=== PATIENT | female | born 1985 | race Caucasian/White ===

== ENCOUNTER 2018-10-19 12:33 | Emergency (ER) | payer OTHER ==
[2018-10-19] MEDS ORDERED: IBUPROFEN 400 MG TABLET (FP) PO ONE ×2 (13:20→13:44)
--- NOTE | 2018-10-19 13:20 | PDOC ---
Rapid Medical Evaluation Chief Complaint: Sore Throat Medical Evaluation: Allergies Allergy/AdvReac Type Severity Reaction Status Date / Time aspirin Allergy Verified 06/27/15 13:08 codeine [Codeine] Allergy Verified 06/27/15 13:08 Penicillins Allergy Verified 06/27/15 13:08 I have performed a brief in-person evaluation of this patient. The patient presents with a chief complaint of: Sore throat x 4 days, subjective fever; no cough Pertinent physical exam findings: B/L tonsillar swelling with exudates noted I have ordered the following: Rapid strep, Motrin The patient will proceed to the ED for further evaluation. 10/19/18 13:18
[2018-10-19 13:22] VITALS: BP 114/73; PULSE 108; TEMP 102.4; BMI 24.9
[2018-10-19] MEDS ORDERED: DEXAMETHASONE SOD PHOSPHATE 10 MG/1 ML VIAL ONE (13:44)
[2018-10-19] MEDS ORDERED: DEXAMETHASONE LIQUID 0.5 MG/5 ML 240 ML BULK BOTTLE PO ONE (13:44)
[2018-10-19] MEDS ORDERED: AZITHROMYCIN 500 MG TABLET ONE (13:46)
[2018-10-19] MEDS ORDERED: AZITHROMYCIN 250 MG TABLET ONE (13:47)
--- NOTE | 2018-10-19 13:54 | PDOC ---
History of Present Illness - General Chief Complaint: Sore Throat Stated Complaint: SORE THROAT Time Seen by Provider: 10/19/18 13:39 History Source: Patient Exam Limitations: No Limitations - History of Present Illness Initial Comments: Patient is a 33-year-old female states over the past 2 days she has had a sore throat, fever, and anterior cervical chain lymphadenopathy. She describes the pain as sore and rates it at a 9 out of 10. Tylenol was taken prior to arrival. She denies sick contacts. She denies inability to eat or drink or airway compromise. Patient denies any aggravating or relieving symptoms. 10/19/18 13:49 Past History - Travel Traveled outside of the country in the last 30 days: No Close contact w/someone who was outside of country & ill: No - Past Medical History Allergies/Adverse Reactions: Allergies Allergy/AdvReac Type Severity Reaction Status Date / Time aspirin Allergy Verified 06/27/15 13:08 codeine [Codeine] Allergy Verified 06/27/15 13:08 Penicillins Allergy Verified 06/27/15 13:08 Home Medications: Ambulatory Orders Azithromycin 250 mg PO DAILY #4 tablet 10/19/18 COPD: No Disorders: No - Surgical History Cholecystectomy: Yes (5 yrs ago) - Reproductive History (#): 4 Para: 3 Cervical CA: No Dysfunctional Uterine Bleeding: No Ectopic : No Endometrial CA: No Polycystic Ovaries: No Therapeutic (s) & number: No Tubal Ligation: No Spontaneous : 1 - Immunization History Immunization Up to Date: Yes - Suicide/Smoking/Psychosocial Hx Smoking Status: No Smoking History: Never smoked Number of Cigarettes Smoked Daily: 0 Hx Alcohol Use: No Drug/Substance Use Hx: No Substance Use Type: None Review of Systems - Review of Systems Able to Perform ROS?: Yes Constitutional: Yes: Fever HEENTM: Yes: Throat Pain. No: Throat Swelling, Difficulty Swallowing Respiratory: No: Cough All Other Systems: Reviewed and Negative *Physical Exam - Vital Signs Last Vital Signs Temp Pulse Resp BP Pulse Ox 102.4 F H 108 H 16 114/73 99 10/19/18 13:18 10/19/18 13:18 10/19/18 13:18 10/19/18 13:18 10/19/18 13:18 - Physical Exam Comments: Constitutional: VS stated, pt appears in no apparent distress; sitting in chair. Skin: Warm and dry. Intact, no lesions or excoriations. Head: Normocephalic; atraumatic Eyes: conjunctiva pink without injection or discharge. Ears: No tenderness present. Canals without injection or discharge; TM clear, no retractions or bulging. Nose: Patent, mucosa pink. No drainage. Throat: Oropharynx with pink and moist mucosa. Dentition good. Pt has pharyngeal , no erythema. Pt has exudate. No signs of peritonsillar abscess. Tongue normal , no fasciculations. Airway Patent. Hypoglossal area is soft. Uvula is midline. No trismus. Neck: Supple, non-tender, with full ROM, trachea midline, pt has anterior cervical chain lymphadenopathy, Lungs: Bilateral breath sounds clear upon auscultation. No adventitious breath sounds. Heart: Regular rate and rhythm, S1/S2 auscultated. No murmurs, rubs, or gallops. No visible pulsations, heaves, or lifts on precordium. Abdomen: Soft and non-tender. Musculoskeletal: Moves all extremities without difficulty. Neurologic: Awake, alert. Conversation fluent. Psych: Appropriate affect. 10/19/18 13:50 Moderate Sedation - Procedure Monitoring Vital Signs: Procedure Monitoring Vital Signs Temperature 102.4 F H 10/19/18 13:18 Pulse Rate 108 H 10/19/18 13:18 Respiratory Rate 16 10/19/18 13:18 Blood Pressure 114/73 10/19/18 13:18 O2 Sat by Pulse Oximetry (%) 99 10/19/18 13:18 Medical Decision Making - Medical Decision Making Pt has 4/4 of the classic signs of strep. No rapid beta strep was performed. Patient was given Decadron 10 mg by mouth and the first dose of azithromycin 500 mg by mouth. She had no signs of anaphylaxis or ALLERGIC reaction. The patient has no signs of peritonsillar abscess. She will be discharged on antibiotics with appropriate PCP follow-up. 10/19/18 13:52 *DC/Admit/Observation/Transfer Diagnosis at time of Disposition: Strep throat - Discharge Dispostion Disposition: HOME Condition at time of disposition: Stable Decision to Admit order: No - Prescriptions Prescriptions: Azithromycin 250 mg PO DAILY #4 tablet - Referrals - Patient Instructions Printed Discharge Instructions: DI for Strep Throat Additional Instructions: Antibiotic daily for the next 4 days. After taking the antibiotic for 2 days throw out your toothbrush and replace with new. For your fever alternate Tylenol 650 mg every 4 hours and ibuprofen 600 mg every 6 hours. Follow-up with your primary care physician. - Post Discharge Activity
[2018-10-19] MEDS ORDERED: AZITHROMYCIN 500 MG TABLET PO SCH (14:00)
[2018-10-19] MEDS ORDERED: AZITHROMYCIN 250 MG TABLET PO ONE (14:05)
== END 2018-10-19 14:10 | disposition home or self-care (01) ==
LOC: JERFT 12:33
DX: J02.0 Streptococcal pharyngitis (principal); B95.5 Unspecified streptococcus as the cause of diseases classified elsewhere
CPT/HCPCS: 99281-25

== ENCOUNTER 2019-06-06 14:56 | Emergency (ER) | payer OTHER ==
[2019-06-06 15:02] VITALS: BP 136/84; PULSE 91; TEMP 98.7; BMI 26.2
--- NOTE | 2019-06-06 15:02 | PDOC ---
Rapid Medical Evaluation Time Seen by Provider: 06/06/19 15:00 Medical Evaluation: Allergies Allergy/AdvReac Type Severity Reaction Status Date / Time aspirin Allergy Verified 06/27/15 13:08 codeine [Codeine] Allergy Verified 06/27/15 13:08 Penicillins Allergy Verified 06/27/15 13:08 06/06/19 15:00 I have performed a brief in-person evaluation of this patient. The patient presents with a chief complaint of: left wrist pain s/p FOOSH Pertinent physical exam findings: swelling over left distal radius. FAROM. I have ordered the following: xray, ice The patient will proceed to the ED for further evaluation. Discharge Disposition - Diagnosis Wrist pain, left - Referrals - Patient Instructions - Post Discharge Activity
--- NOTE | 2019-06-06 16:00 | PDOC ---
History of Present Illness - General Chief Complaint: Pain, Acute Stated Complaint: LT. ARM PAIN Time Seen by Provider: 06/06/19 15:00 History Source: Patient - History of Present Illness Initial Comments: 06/06/19 16:09 Chief complaint: Fall Patient is a healthy 34-year-old female who states she fell down several stairs earlier today, no LOC, patient states she tripped, patient is ambulatory and complaining of pain to the left wrist and the left knee. Patient is not sure when her last tetanus was. GENERAL/CONSTITUTIONAL: No fever, weakness. dizziness HEAD, EYES, EARS, NOSE AND THROAT: No change in vision. No ear pain or discharge. No sore throat. CARDIOVASCULAR: No chest pain RESPIRATORY: No shortness of breath or cough GASTROINTESTINAL: No pain, nausea, vomiting, diarrhea or constipation GENITOURINARY: No dysuria MUSCULOSKELETAL: No neck or back pain, + F wrist, left knee SKIN: No rash NEUROLOGIC: No headache, vertigo, loss of consciousness, or loss of sensation. GENERAL: The patient is awake, alert, and fully oriented, in no acute distress. HEAD: Normal with no signs of trauma. EYES: Pupils equal, round and reactive to light, sclera anicteric, conjunctiva clear. ENT: pharynx: no erythema, no exudate, uvula midline NECK: supple CHEST: clear, nontender, rr ABD: soft, nontender BACK: no tenderness or signs of injury EXTREMITIES: Upper extremity with mild swelling at the left wrist, abrasion to the forearm, no pain or tenderness to the elbow or shoulder, hand has no tenderness or signs of injury, neurovascular intact. Left lower extremity with small superficial abrasion to the lateral knee, no swelling, redness, deformity , full range of motion, neurovascular intact. Rest of extremities, normal range of motion, no edema. NEUROLOGICAL: Normal speech, normal gait. SKIN: Warm, Dry Past History - Past Medical History Allergies/Adverse Reactions: Allergies Allergy/AdvReac Type Severity Reaction Status Date / Time aspirin Allergy Verified 06/06/19 15:03 codeine [Codeine] Allergy Verified 06/06/19 15:03 Penicillins Allergy Verified 06/06/19 15:03 Home Medications: Ambulatory Orders NK [No Known Home Medication] 06/06/19 COPD: No Disorders: No - Surgical History Cholecystectomy: Yes (5 yrs ago) - Reproductive History (#): 4 Para: 3 Cervical CA: No Dysfunctional Uterine Bleeding: No Ectopic : No Endometrial CA: No Polycystic Ovaries: No Therapeutic (s) & number: No Tubal Ligation: No Spontaneous : 1 - Immunization History Immunization Up to Date: Yes - Suicide/Smoking/Psychosocial Hx Smoking Status: No Smoking History: Never smoked Number of Cigarettes Smoked Daily: 0 Hx Alcohol Use: No Drug/Substance Use Hx: No Substance Use Type: None *Physical Exam - Vital Signs Last Vital Signs Temp Pulse Resp BP Pulse Ox 98.7 F 91 H 14 136/84 99 06/06/19 15:00 06/06/19 15:00 06/06/19 15:00 06/06/19 15:00 06/06/19 15:00 Procedures - Splinting Splint Location: Left: Wrist Pre-Proc Neuro Vasc Exam: normal Pre-Made Type: velcro Post-Proc Neuro Vasc Exam: normal Medical Decision Making - Medical Decision Making 06/06/19 16:11 Healthy 34-year-old female who fell down several steps, injuring her left wrist and left knee. He should has no head injury, patient is ambulatory, x-ray for left wrist and hand was ordered in triage. Patient does not require imaging of the knee. Review of the x-ray of the left wrist and hand show no acute fracture, issue Will place patient in splint, given wound instructions and if wrist continues to bother her she can follow-up with orthopedist. *DC/Admit/Observation/Transfer Diagnosis at time of Disposition: Wrist pain, left, Abrasion - Discharge Dispostion Disposition: HOME - Referrals Referrals: Will Goins MD [Primary Care Provider] - Davion Day MD [Staff Physician] - - Patient Instructions Printed Discharge Instructions: DI for Abrasion Additional Instructions: Elevate, wear splint You can apply ice for 20 minutes every 2 hours for the next 2 days Motrin 600 mg every 6 hours for pain. Call the orthopedist tomorrow Clean with soap and water 2-3 times daily, apply bacitracin Have her reevaluated if redness, pus, fever or getting worse - Post Discharge Activity
[2019-06-06] MEDS ORDERED: DIPHTH,PERTUSS(ACELL),TET 0.5 ML DISP.SYRIN IM ONE (16:09)
== END 2019-06-06 16:20 | disposition home or self-care (01) ==
LOC: JERFT 14:56
PROC: 3E0234Z Introduction of Serum, Toxoid and Vaccine into Muscle, Percutaneous Approach (ICD-10-PCS; principal; 2019-06-06)
PROC: 2W3DX1Z Immobilization of Left Lower Arm using Splint (ICD-10-PCS; 2019-06-06)
DX: M25.532 Pain in left wrist (principal); S80.212A Abrasion, left knee, initial encounter; S50.812A Abrasion of left forearm, initial encounter; W10.8XXA Fall (on) (from) other stairs and steps, initial encounter; Y93.89 Activity, other specified; Y92.89 Other specified places as the place of occurrence of the external cause; Y99.8 Other external cause status
CPT/HCPCS: 73110-TC-LT-FY; 90715; 99281-25

== ENCOUNTER 2019-11-05 15:25 | Inpatient (IN) | payer OTHER ==
[2019-11-05] MEDS ORDERED: SODIUM CHLORIDE 1,000 ML IV STA (16:56)
[2019-11-05] MEDS ORDERED: ONDANSETRON 4 MG/2 ML VIAL IVPUSH ONE ×2 (16:56→22:27)
[2019-11-05] MEDS ORDERED: ONDANSETRON 4 MG/2 ML VIAL ONE ×2 (17:03→23:00)
[2019-11-05] MEDS ORDERED: KETOROLAC TROMETHAMINE 30 MG/1 ML VIAL ONE (17:09)
[2019-11-05 17:42] LABS: BASO % 0.1 % (0-2.0); EOS % 0.6 % (0-4.5); HEMATOCRIT 38.2 % (32.4-45.2); HEMOGLOBIN 12.5 GM/dL (10.7-15.3); MCH 27.9 pg (25.7-33.7); MCHC 32.6 g/dl (32.0-36.0); MEAN CELL VOLUME 85.4 fl (80-96); MONO % 4.7 % (3.8-10.2); NEUT % 88.6 % (42.8-82.8); PLATELET COUNT 328 K/MM3 (134-434); RBC 4.47 M/mm3 (3.60-5.2); RDW 15.6 % (11.6-15.6); WHITE BLOOD COUNT 8.6 K/mm3 (4.0-10.0)
[2019-11-05 17:46] LABS: EPI CELLS 5.4 /HPF (0-5/HPF); HYALINE CASTS 1 /lpf (0-8); PH,URINE 5.5 (5.0-8.0); URINE APPEARANCE CLOUDY; URINE BACTERIA 1634.9 /hpf (NEGATIVE); URINE BILIRUBIN NEGATIVE (NEGATIVE); URINE COLOR YELLOW; URINE GLUCOSE (UA) NEGATIVE (NEGATIVE); URINE KETONE NEGATIVE (NEGATIVE); URINE LEUK ESTERASE NEGATIVE (NEGATIVE); URINE NITRITE POSITIVE (NEGATIVE); URINE PROTEIN NEGATIVE (NEGATIVE); URINE RBC 29 /hpf (0-4); URINE WBC 2 /hpf (0-5)
[2019-11-05] MEDS ORDERED: morphine CARPU-JECT 2 MG/1 ML DISP.SYRIN IVPUSH ONE (17:56)
--- NOTE | 2019-11-05 17:58 | PDOC ---
History of Present Illness - General Chief Complaint: Pain, Acute Stated Complaint: CHEST PAIN/ABD PAIN Time Seen by Provider: 11/05/19 16:21 History Source: Patient Exam Limitations: No Limitations - History of Present Illness Travel History: No Initial Comments: 11/05/19 17:06 . 34-year-old female presents to ED with complaints of upper abdominal cramping since this morning associated with nausea vomiting and diarrhea since yesterday. Patient denies fever, chills but states feels generally fatigued patient has no urinary complaints recent travel, recent illness and states history of cholecystectomy. Timing/Duration: reports: constant Quality: reports: mild, moderate, cramping Abdominal Pain Onset Location: reports: generalized abdomen Pain Radiation: reports: no radiation Activities at Onset: reports: none Aggravating Factors: improves with: None Alleviating Factors: improves with: None Past History - Travel Traveled outside of the country in the last 30 days: No Close contact w/someone who was outside of country & ill: No - Past Medical History Allergies/Adverse Reactions: Allergies Allergy/AdvReac Type Severity Reaction Status Date / Time aspirin Allergy Verified 11/05/19 16:13 codeine [Codeine] Allergy Verified 11/05/19 16:13 Penicillins Allergy Verified 11/05/19 16:13 Home Medications: Ambulatory Orders Fluoxetine HCl [Prozac -] 20 mg PO DAILY 11/05/19 Nitrofurantoin Monohyd/M-Cryst [Macrobid -] 100 mg PO BID #14 capsule 11/05/19 Ondansetron HCl [Zofran] 4 mg PO TID PRN #12 tablet 11/05/19 Oxycodone HCl/Acetaminophen [Percocet 5-325 mg Tablet] 1 - 2 tab PO Q6H PRN #12 tab MDD 4 11/05/19 COPD: No Disorders: No - Surgical History Cholecystectomy: Yes (5 yrs ago) - Reproductive History (#): 4 Para: 3 Cervical CA: No Dysfunctional Uterine Bleeding: No Ectopic : No Endometrial CA: No Polycystic Ovaries: No Therapeutic (s) & number: No Tubal Ligation: No Spontaneous : 1 - Immunization History Immunization Up to Date: Yes - Psycho Social/Smoking Cessation Hx Smoking Status: No Smoking History: Never smoked Number of Cigarettes Smoked Daily: 0 Information on smoking cessation initiated: No Hx Alcohol Use: No Drug/Substance Use Hx: No Substance Use Type: None Patient Lives Alone: No Review of Systems - Review of Systems Able to Perform ROS?: No Is the patient limited [place] proficient: No Constitutional: Yes: Loss of Appetite, Weakness HEENTM: No: Symptoms Reported Respiratory: No: Symptoms reported Cardiac (ROS): No: Symptoms Reported ABD/GI: Yes: Diarrhea, Nausea, Poor Appetite, Poor Fluid Intake, Vomiting, Abdominal cramping : No: Symptoms Reported Musculoskeletal: No: Symptoms Reported Integumentary: No: Symptoms Reported Neurological: No: Symptoms reported *Physical Exam - Vital Signs Last Vital Signs Temp Pulse Resp BP Pulse Ox 97.8 F 102 H 16 118/69 99 11/05/19 16:11 11/05/19 16:11 11/05/19 16:11 11/05/19 16:11 11/05/19 16:11 - Physical Exam General Appearance: Yes: Nourished, Appropriately Dressed. No: Apparent Distress HEENT: negative: Pale Conjunctivae Neck: positive: Normal Thyroid, Supple Respiratory/Chest: positive: Lungs Clear, Normal Breath Sounds. negative: Respiratory Distress, Accessory Muscle Use Cardiovascular: positive: Regular Rhythm, Tachycardia. negative: Murmur Gastrointestinal/Abdominal: positive: Soft, Tenderness (Generalized greater in the periumbilical and epigastric region) Musculoskeletal: negative: CVA Tenderness Extremity: positive: Normal Inspection Integumentary: positive: Normal Color, Warm, Moist Neurologic: positive: Motor Strength 5/5 (Ambulatory) ED Treatment Course - LABORATORY CBC & Chemistry Diagram: 11/05/19 16:00 11/05/19 16:00 - ADDITIONAL ORDERS Additional order review: Laboratory Results 11/05/19 11/05/19 16:00 16:00 Urine Color Yellow Urine Appearance Cloudy Urine pH 5.5 Ur Specific [place] 1.005 L Urine Protein Negative Urine Glucose (UA) Negative Urine Ketones Negative Urine Blood 2+ H Urine Nitrite Positive H Urine Bilirubin Negative Urine Urobilinogen 1.0 Ur Leukocyte Esterase Negative Urine WBC (Auto) 2 Urine RBC (Auto) 29 Urine Casts (Auto) 1 U Epithel Cells (Auto) 5.4 Urine Bacteria (Auto) 1634.9 Urine HCG, Qual Negative 11/05/19 16:00 RBC 4.47 MCV 85.4 MCHC 32.6 RDW 15.6 D MPV 7.0 L Neutrophils % 88.6 H D Lymphocytes % 6.0 L D Monocytes % 4.7 Eosinophils % 0.6 Basophils % 0.1 - Medications Given in the ED: ED Medications Discontinued Medications Generic Name Dose Route Start Last Admin Trade Name Cindy PRN Reason Stop Dose Admin Ondansetron HCl 4 mg 11/05/19 16:56 11/05/19 17:37 Zofran Injection IVPUSH 11/05/19 16:57 4 mg ONCE ONE Administration Medical Decision Making - Medical Decision Making 11/05/19 17:09 Chief complaint:nausea vomiting diarrhea along with generalized abdominal pain for the past 2 days now with weakness since this afternoon no urinary complaints , denies irregular menses Exam: Appears uncomfortable generalized abdominal tenderness greater in the periumbilical and epigastric region Plan: Labs, urine, antiemetics, IV fluids Toradol 11/05/19 18:10 Laboratory Tests 11/05/19 11/05/19 11/05/19 16:00 16:00 16:00 WBC 8.6 Hgb 12.5 Hct 38.2 MPV 7.0 L Neutrophils % 88.6 H D Lymphocytes % 6.0 L D Urine Blood 2+ H Urine Nitrite Positive H Urine Bilirubin Negative Ur Leukocyte Esterase Negative Urine WBC (Auto) 2 Urine RBC (Auto) 29 Urine Bacteria (Auto) 1634.9 Urine HCG, Qual Negative 11/05/19 18:37 Laboratory Tests 11/05/19 11/05/19 16:00 16:00 WBC 8.6 Hgb 12.5 Hct 38.2 MPV 7.0 L Neutrophils % 88.6 H D Lymphocytes % 6.0 L D Monocytes % 4.7 Eosinophils % 0.6 Basophils % 0.1 Nucleated RBC % 0 Sodium 141 Potassium 3.6 Chloride 107 Carbon Dioxide 26 Anion Gap 7 L BUN 14.0 Creatinine 0.6 Est GFR (CKD-EPI)AfAm 136.87 Est GFR (CKD-EPI)NonAf 118.09 Random Glucose 99 Calcium 8.6 Magnesium 2.1 Total Bilirubin 0.9 AST 165 H ALT 91 H Alkaline Phosphatase 141 H Creatine Kinase 72 Troponin I < 0.02 Lipase 66 L . Patient added for hepatitis panel . patient will be discharged home with antibiotics /antiemetics. No previous urine culture on file. Urine culture sent today. 11/05/19 18:45 . Patient upon discharge complaining of worsening pain now greater in the right lower quadrant. Patient will be ordered for abdominal CT. if negative will treat as discussed above Discharge - Discharge Information Problems reviewed: Yes Clinical Impression/Diagnosis: Nausea vomiting and diarrhea, UTI (urinary tract infection) Condition: Improved Disposition: HOME - Additional Discharge Information Prescriptions: Nitrofurantoin Monohyd/M-Cryst [Macrobid -] 100 mg PO BID #14 capsule Ondansetron HCl [Zofran] 4 mg PO TID PRN #12 tablet PRN Reason: Nausea And/Or Vomiting Oxycodone HCl/Acetaminophen [Percocet 5-325 mg Tablet] 1 - 2 tab PO Q6H PRN #12 tab MDD 4 PRN Reason: Pain - Follow up/Referral Referrals: Fransisco Pedro MD [Primary Care Provider] - - Patient Discharge Instructions Patient Printed Discharge Instructions: DI for Urinary Tract Infection (UTI), DI for Diarrhea and Traveler's Diarrhea -- Adult, Nausea and Vomiting-Adult Additional Instructions: At this time I have sent off a hepatitis panel to rule out hepatitis A. You Will be treated for urinary tract infection and to take Zofran as needed for nausea. Eat bland foods including rice and other starchy foods to bind stool. If symptoms worsen despite above - Post Discharge Activity
[2019-11-05] MEDS ORDERED: KETOROLAC TROMETHAMINE 30 MG/1 ML VIAL IVPUSH ONE (18:00)
[2019-11-05] MEDS ORDERED: MORPHINE SULFATE 2 MG/ML VIAL ONE (18:03)
[2019-11-05 18:14] LABS: ALBUMIN 3.9 g/dl (3.4-5.0); ALK PHOS 141 U/L (45-117); ANION GAP 7 MMOL/L (8-16); BILIRUBIN,TOTAL 0.9 mg/dL (0.2-1); CALCIUM 8.6 mg/dL (8.5-10.1); CHLORIDE 107 mmol/L (98-107); CO2 26 mmol/L (21-32); CREATININE 0.6 mg/dL (0.55-1.3); GLUCOSE,RANDOM 99 mg/dL (74-106); LIPASE 66 U/L (73-393); MAGNESIUM 2.1 mg/dL (1.8-2.4); POTASSIUM 3.6 mmol/L (3.5-5.1); SGOT/AST 165 U/L (15-37); SGPT/ALT 91 U/L (13-61); SODIUM 141 mmol/L (136-145); TOT PROT 7.6 g/dl (6.4-8.2)
[2019-11-05] MEDS ORDERED: morphine CARPU-JECT 4 MG/1 ML DISP.SYRIN IVPUSH ONE ×2 (19:29→22:27)
[2019-11-05] MEDS ORDERED: morphine SULFATE 4 MG/ML VIAL ONE (19:46)
--- NOTE | 2019-11-05 22:10 | PDOC ---
*Physical Exam - Vital Signs Last Vital Signs Temp Pulse Resp BP Pulse Ox 97.8 F 102 H 16 118/69 99 11/05/19 16:11 11/05/19 16:11 11/05/19 16:11 11/05/19 16:11 11/05/19 16:11 - Physical Exam General Appearance: Yes: Appropriately Dressed. No: Apparent Distress HEENT: positive: Normal ENT Inspection Neck: positive: Trachea midline Respiratory/Chest: positive: Lungs Clear. negative: Respiratory Distress Cardiovascular: positive: Regular Rhythm, Regular Rate Gastrointestinal/Abdominal: positive: Tender (Right upper and right lower quadrant tenderness. Worse pain in the right upper quadrant.) Musculoskeletal: positive: Normal Inspection Integumentary: positive: Normal Color, Dry, Warm Neurologic: positive: Fully Oriented, Alert ED Treatment Course - LABORATORY CBC & Chemistry Diagram: 11/06/19 09:55 11/06/19 09:55 - ADDITIONAL ORDERS Additional order review: Laboratory Results 11/05/19 11/05/19 11/05/19 16:00 16:00 16:00 Sodium 141 Potassium 3.6 Chloride 107 Carbon Dioxide 26 Anion Gap 7 L BUN 14.0 Creatinine 0.6 Est GFR (CKD-EPI)AfAm 136.87 Est GFR (CKD-EPI)NonAf 118.09 Random Glucose 99 Calcium 8.6 Magnesium 2.1 Total Bilirubin 0.9 AST 165 H ALT 91 H Alkaline Phosphatase 141 H Creatine Kinase 72 Troponin I < 0.02 Total Protein 7.6 Albumin 3.9 Lipase 66 L Urine Color Yellow Urine Appearance Cloudy Urine pH 5.5 Ur Specific [place] 1.005 L Urine Protein Negative Urine Glucose (UA) Negative Urine Ketones Negative Urine Blood 2+ H Urine Nitrite Positive H Urine Bilirubin Negative Urine Urobilinogen 1.0 Ur Leukocyte Esterase Negative Urine WBC (Auto) 2 Urine RBC (Auto) 29 Urine Casts (Auto) 1 U Epithel Cells (Auto) 5.4 Urine Bacteria (Auto) 1634.9 Urine HCG, Qual Negative 11/05/19 16:00 RBC 4.47 MCV 85.4 MCHC 32.6 RDW 15.6 D MPV 7.0 L Neutrophils % 88.6 H D Lymphocytes % 6.0 L D Monocytes % 4.7 Eosinophils % 0.6 Basophils % 0.1 - Medications Given in the ED: ED Medications Discontinued Medications Generic Name Dose Route Start Last Admin Trade Name Freq PRN Reason Stop Dose Admin Sodium Chloride 1,000 mls @ 1,000 mls/hr 11/05/19 16:56 11/05/19 17:36 Normal Saline - IV 11/05/19 17:55 1,000 mls/hr ASDIR STA Administration Ketorolac Tromethamine 30 mg 11/05/19 18:00 11/05/19 18:09 Toradol Injection - IVPUSH 11/05/19 18:01 30 mg ONCE ONE Administration Morphine Sulfate 2 mg 11/05/19 17:56 11/05/19 18:08 Morphine Injection - IVPUSH 11/05/19 17:57 2 mg ONCE ONE Administration Morphine Sulfate 4 mg 11/05/19 19:29 11/05/19 19:55 Morphine Injection - IVPUSH 11/05/19 19:30 4 mg ONCE ONE Administration Ondansetron HCl 4 mg 11/05/19 16:56 11/05/19 17:37 Zofran Injection IVPUSH 11/05/19 16:57 4 mg ONCE ONE Administration ED Progress Note - Progress Note Progress Note: 11/05/19 22:03 Received patient from nurse practitioner Vladislav. Briefly this is a 34-year-old woman presents to the emergency department for abdominal pain. Patient noted to have urinalysis positive for nitrates with an elevated bacteria count. Patient was planned for discharge when she developed worsening abdominal pain. Labs notable for elevated AST, ALT and alk phos. WBC is within normal limits with shift noted. Patient has received morphine for pain. CT of the abdomen and pelvis is pending at this time. Medical Decision Making - Medical Decision Making 11/05/19 22:25 CT scan is read by Dr. Baltazar: The appendiceal tip appears mildly dilated with apparent slight concentric wall thickening in the same region? Possible tip appendicitis. There is no definite associated periappendiceal fluid/edema. Terminal ileum demonstrates mild concentric wall thickening which may be on the basis of acute or chronic ileitis. No perienteric edema/fluid is noted. There is also mild concentric wall thickening involving several mid abdominal small bowel loops. Status post cholecystectomy. The common bile duct is mildly dilated with the 0.9 cm diameter. No gross intraductal calculus is identified within the limits of CT. Surgical consultation Likely admission Morphine 4 mg IV push now Zofran 4 mg IV push LR 125 ml/hr 11/05/19 22:31 Case has been discussed with Dr. Solomon of general surgery who recommends admission for appendicitis for probable appendectomy in the morning. He recommends Zosyn for antibiotics overnight. As patient is allergic to penicillin I will treat with Levaquin and Flagyl. I will contact the hospitalist for admission. 11/05/19 22:35 11/05/19 23:24 Case has been discussed with the hospitalist service who accepts for inpatient admission under Dr. Woody. Discharge - Discharge Information Problems reviewed: Yes Clinical Impression/Diagnosis: UTI (urinary tract infection), Appendicitis, acute, Abnormal liver function tests Condition: Fair - Admission Yes - Additional Discharge Information - Follow up/Referral - Patient Discharge Instructions - Post Discharge Activity
[2019-11-05] MEDS ORDERED: HYDROmorphone HCL CARPU-JECT 2 MG/1 ML DISP.SYRIN IVPB ONE (22:55)
[2019-11-05] MEDS ORDERED: HYDROmorphone HCl 2 MG/ML VIAL ONE (22:59)
--- NOTE | 2019-11-05 23:03 | PN ---
Teaching Attending Note Name of Resident: Susu Pate ATTENDING PHYSICIAN STATEMENT I saw and evaluated the patient. I reviewed the resident's note and discussed the case with the resident. I agree with the resident's findings and plan as documented. SUBJECTIVE: Patient is a 34 year old woman with a PMH of Cholecystectomy, Anxiety and Penicillin allergy who presents to the ER with complaints of upper abdominal cramping since this morning associated with nausea, vomiting and diarrhea since yesterday. Patient denies fever, chills but states she feels generally fatigued. Denies headache, dizziness, photophobia, dysuria, frequency, urgency, chest pain, SOB or diaphoresis. No recent travel, recent illness or sick contacts. Denies alcohol, tobacco or illicit drug use. Her period stopped on 11/03. OBJECTIVE: Alert Vital Signs Period Temp Pulse Resp BP Sys/Isabel Pulse Ox Last 24 Hr 97.8 F 102 16 118/69 99 HEENT: No Jaundice, eye redness or discharge, PERRLA, EOMI. Normocephalic, atraumatic. External ears are normal and hearing is grossly intact. No nasal discharge. Neck: Supple, nontender. No palpable adenopathy or thyromegaly. No JVD Chest: Good effort. Clear to auscultation and percussion. Heart: Regular. No S3, rub or murmur Abdomen: Not distended, soft, upper abdominal and RLQ tenderness; no HSM. No rebound or guarding. Normal bowel sounds. Ext: Peripheral pulses intact. No leg edema. Skin: Warm and dry. No petechiae, rash or ecchymosis. Neuro: Alert. Oriented x3. CN 2-12 grossly intact. Sensation grossly intact in all four extremities and DTR are symmetric. Psych: Appropriate mood and affect. Good insight. Current Medications Generic Name Dose Route Start Last Admin Trade Name Freq PRN Reason Stop Dose Admin Lactated Ringer's 1,000 ml in 1,000 mls @ 125 mls/hr 11/05/19 22:30 Lactated Ringers Solution IV ASDIR ANA LUISA Metronidazole 500 mg in 100 mls @ 100 mls/hr 11/05/19 22:34 Flagyl 500mg Premixed Ivpb - IVPB 11/05/19 23:33 ONCE ONE Levofloxacin 750 mg in 150 mls @ 100 mls/hr 11/05/19 22:34 Levaquin 750 Mg Premixed Ivpb - IVPB 11/06/19 00:03 ONCE ONE Protocol Abnormal Lab Results 11/05/19 11/05/19 11/05/19 16:00 16:00 16:00 MPV 7.0 L Neutrophils % 88.6 H D Lymphocytes % 6.0 L D Anion Gap 7 L AST 165 H ALT 91 H Alkaline Phosphatase 141 H Lipase 66 L Ur Specific [place] 1.005 L Urine Blood 2+ H Urine Nitrite Positive H ASSESSMENT AND PLAN: 1. Appendicitis/Ileitis - CT abdomen/Pelvis with IV contrast showed findings suggestive of tip appendicitis and ileitis. Patient started on IV flagyl, IV NS , IV levofloxacin, IV zofran and IV morphine. Will keep her NPO, send any diarrheal stool for stool studies, ova/parasites and C.diff. Hepatitis serology pending. Will get upper abdominal sonogram, trend LFTs and consult GI and Surgery. EKG shows sinus bradycardia, LAFB, and anterior infarct of undetermined age. Initial troponin is negative. Will repeat EKG and troponin. Hematuria likely due to recently finished menstrual period - will repeat UA in 24-48 hours. Will continue comprehensive care for all of patients comorbid conditions. 2. DVT prophylaxis - SCD, Early ambulation 3. Advance directives - Full code
[2019-11-05] MEDS: LACTATED RINGERS SOLUTION 1,000 ML/1,000 ML INFUS.BAG IV SCH (23:20)
[2019-11-06] MEDS ORDERED: ONDANSETRON 4 MG/2 ML VIAL IVPUSH PRN ×2 (00:02→12:18)
--- NOTE | 2019-11-06 01:05 | HP ---
CHIEF COMPLAINT: Abdominal pain PCP: Dr. Fransisco Pedro HISTORY OF PRESENT ILLNESS: Ms. Bucio is a 34 year old female with PMH of cholecystectomy who presents with upper abdominal pain for 3 days. Pain began in the upper/periumbilical region and has localized to the RLQ. She complains of associated nausea, 6 episodes of NBNB emesis, 2 episodes of non-bloody diarrhea and fatigue. Pt has had a decreased appetite, has not been able to eat since yesterday. She denies fevers, chills, urinary symptoms. LMP: 2 days ago Recent Travel: denies PAST MEDICAL HISTORY: None PAST SURGICAL HISTORY: Cholecystectomy Social History: Smoking: denies Alcohol: denies Drugs: denies Allergies aspirin Allergy (Verified 11/05/19 16:13) codeine [Codeine] Allergy (Verified 11/05/19 16:13) Penicillins Allergy (Verified 11/05/19 16:13) HOME MEDICATIONS: Home Medications Medication Instructions Recorded Fluoxetine HCl [Prozac -] 20 mg PO DAILY 11/05/19 Nitrofurantoin Monohyd/M-Cryst 100 mg PO BID #14 capsule 11/05/19 [Macrobid -] Ondansetron HCl [Zofran] 4 mg PO TID PRN #12 tablet 11/05/19 Oxycodone HCl/Acetaminophen 1 - 2 tab PO Q6H PRN #12 tab MDD 4 11/05/19 [Percocet 5-325 mg Tablet] REVIEW OF SYSTEMS CONSTITUTIONAL: Absent: fever, chills, diaphoresis, generalized weakness, malaise, loss of appetite, weight change HEENT: Absent: rhinorrhea, nasal congestion, throat pain, throat swelling, difficulty swallowing, mouth swelling, ear pain, eye pain, visual changes CARDIOVASCULAR: Absent: chest pain, syncope, palpitations, irregular heart rate, lightheadedness , peripheral edema RESPIRATORY: Absent: cough, shortness of breath, dyspnea with exertion, orthopnea, wheezing, stridor, hemoptysis GASTROINTESTINAL: abdominal pain, nausea, vomiting, diarrhea Absent: abdominal distension, constipation, melena, hematochezia GENITOURINARY: Absent: dysuria, frequency, urgency, hesitancy, hematuria, flank pain, genital pain MUSCULOSKELETAL: Absent: myalgia, arthralgia, joint swelling, back pain, neck pain SKIN: Absent: rash, itching, pallor HEMATOLOGIC/IMMUNOLOGIC: Absent: easy bleeding, easy bruising, lymphadenopathy, frequent infections ENDOCRINE: Absent: unexplained weight gain, unexplained weight loss, heat intolerance, cold intolerance NEUROLOGIC: Absent: headache, focal weakness or paresthesias, dizziness, unsteady gait, seizure, mental status changes, bladder or bowel incontinence PSYCHIATRIC: Absent: anxiety, depression, suicidal or homicidal ideation, hallucinations. PHYSICAL EXAMINATION Vital Signs - 24 hr 11/05/19 16:11 Temperature 97.8 F Pulse Rate 102 H Respiratory 16 Rate Blood Pressure 118/69 O2 Sat by Pulse 99 Oximetry (%) GENERAL: Awake, alert, and fully oriented, in no acute distress. HEAD: Normal with no signs of trauma. EYES: Pupils equal, round and reactive to light, extraocular movements intact, sclera anicteric, conjunctiva clear. No lid lag. EARS, NOSE, THROAT: Ears normal, nares patent, oropharynx clear without exudates. Moist mucous membranes. NECK: Normal range of motion, supple without lymphadenopathy, JVD, or masses. LUNGS: Breath sounds equal, clear to auscultation bilaterally. No wheezes, and no crackles. No accessory muscle use. HEART: Regular rate and rhythm, normal S1 and S2 without murmur, rub or gallop. ABDOMEN: Periumbilical and RLQ tenderness, soft, not distended, normoactive bowel sounds, no guarding, no rebound, no masses. No hepatomegaly or splenomegaly. MUSCULOSKELETAL: Normal range of motion at all joints. No bony deformities or tenderness. No CVA tenderness. UPPER EXTREMITIES: 2+ pulses, warm, well-perfused. No cyanosis. No clubbing. No peripheral edema. LOWER EXTREMITIES: 2+ pulses, warm, well-perfused. No calf tenderness. No peripheral edema. NEUROLOGICAL: Cranial nerves II-XII intact. Normal speech. Normal gait. PSYCHIATRIC: Cooperative. Good eye contact. Appropriate mood and affect. SKIN: Warm, dry, normal turgor, no rashes or lesions noted, normal capillary refill. Laboratory Results - last 24 hr CBC, BMP 11/05/19 16:00 11/05/19 16:00 Urine Test Results Urine Color Yellow Urine Appearance Cloudy Urine pH 5.5 (5.0-8.0) Ur Specific [place] 1.005 (1.010-1.035) L Urine Protein Negative (NEGATIVE) Urine Glucose (UA) Negative (NEGATIVE) Urine Ketones Negative (NEGATIVE) Urine Blood 2+ (NEGATIVE) H Urine Nitrite Positive (NEGATIVE) H Urine Bilirubin Negative (NEGATIVE) Ur Leukocyte Esterase Negative (NEGATIVE) ASSESSMENT/PLAN: Ms. Bucio is a 34 year old female with PMH of cholecystectomy who presents with upper abdominal pain for 3 days. #Acute appendicitis CTAP: The appendiceal tip appears mildly dilated with apparent slight concentric wall thickening in the same region? Possible tip appendicitis. There is no definite associated periappendiceal fluid/edema. Terminal ileum demonstrates mild concentric wall thickening which may be on the basis of acute or chronic ileitis. No perienteric edema/fluid is noted. There is also mild concentric wall thickening involving several mid abdominal small bowel loops. Status post cholecystectomy. The common bile duct is mildly dilated with the 0.9 cm diameter. No gross intraductal calculus is identified within the limits of CT. Surgery consulted (Dr. Arteaga) will operate in am Cont IV abx flagyl and levaquin IV LR @ 125ml/hr NPO after midnight IV morphine for pain, IV zofran for nausea #Transaminitis AST: 165 ALT: 91, trend LFTs F/u hepatitis panel Abdominal US Send stool cx, O&P, c. diff #Anxiety Cont home fluoxetine post-operatively #FEN IV LR @ 125ml/hr NPO #DVT ppx SCDs #Dispo Monitor on med-surg Visit type - Emergency Visit Emergency Visit: Yes ED Registration Date: 11/05/19 Care time: The patient presented to the Emergency Department on the above date and was hospitalized for further evaluation of their emergent condition. - New Patient This patient is new to me today: Yes Date on this admission: 11/06/19 - Critical Care Critical Care patient: No ATTENDING PHYSICIAN STATEMENT I saw and evaluated the patient. I reviewed the resident's note and discussed the case with the resident. I agree with the resident's findings and plan as documented. SUBJECTIVE: OBJECTIVE: ASSESSMENT AND PLAN:
[2019-11-06] MEDS ORDERED: MORPHINE SULFATE 2 MG/ML VIAL IVPUSH PRN (01:20)
[2019-11-06] MEDS ORDERED: MORPHINE SULFATE 2 MG/ML VIAL ONE (04:50)
[2019-11-06] MEDS ORDERED: METOCLOPRAMIDE HCL INJECTION 10 MG/2 ML VIAL IVPUSH ONE ×2 (04:58→05:26)
[2019-11-06] MEDS ORDERED: METOCLOPRAMIDE HCL INJECTION 10 MG/2 ML VIAL ONE (04:58)
[2019-11-06] MEDS: LACTATED RINGERS SOLUTION 1,000 ML/1,000 ML INFUS.BAG IV SCH (05:21)
[2019-11-06 06:31] VITALS: BMI 27.3
--- NOTE | 2019-11-06 09:28 | EKG ---
Test Reason : Blood Pressure : / mmHG Vent. Rate : 057 BPM Atrial Rate : 057 BPM P-R Int : 114 ms QRS Dur : 092 ms QT Int : 444 ms P-R-T Axes : 006 134 148 degrees QTc Int : 432 ms SINUS BRADYCARDIA LEFT POSTERIOR FASCICULAR BLOCK CANNOT RULE OUT ANTERIOR INFARCT , AGE UNDETERMINED ABNORMAL ECG Confirmed by Trevon Ivey MD ([id number]) on 11/06/2019 9:28:34 AM Referred By: Confirmed By:Trevon Ivey MD
[2019-11-06] MEDS ORDERED: FLU VACCINE QUAD 60 MCG/0.5 ML (MDV 19-20) IM ONE (10:00)
[2019-11-06 10:21] LABS: BASO % 0.2 % (0-2.0); EOS % 0.4 % (0-4.5); HEMATOCRIT 32.5 % (32.4-45.2); HEMOGLOBIN 10.5 GM/dL (10.7-15.3); MCH 27.6 pg (25.7-33.7); MCHC 32.3 g/dl (32.0-36.0); MEAN CELL VOLUME 85.4 fl (80-96); NEUT % 78.4 % (42.8-82.8); PLATELET COUNT 267 K/MM3 (134-434); RDW 15.5 % (11.6-15.6); WHITE BLOOD COUNT 4.6 K/mm3 (4.0-10.0)
[2019-11-06 10:42] LABS: ALBUMIN 3.2 g/dl (3.4-5.0); BLOOD UREA NITROGEN 11.7 mg/dL (7-18); CALCIUM 8.1 mg/dL (8.5-10.1); CREATININE 0.6 mg/dL (0.55-1.3); POTASSIUM 3.5 mmol/L (3.5-5.1); TOT PROT 6.3 g/dl (6.4-8.2)
--- NOTE | 2019-11-06 11:00 | PN ---
Physical Exam: SUBJECTIVE: Patient seen and examined, denies any chest pain, denies shortness of breath. OBJECTIVE: for surgical intervention of appendicitis Patient is a 34 year old female with PMH of cholecystectomy who presents with upper abdominal pain for 3 days. Pain began in the upper/periumbilical region and has localized to the RLQ. She complains of associated nausea, 6 episodes of NBNB emesis, 2 episodes of non-bloody diarrhea and fatigue. Pt has had a decreased appetite. She denies fevers, chills, urinary symptoms. hypotensive this a.m. but asymptomatic. imaging: ct abd/pelvis: appendiceal tip mildly dilated with apparent slight concenteric wall thickening in the same region, possible appendicitis. no associated periappendiceal fluid/edema. the terminal ileum demonstrates mild concentric wall thickening which may be in the basis of acute or chronic ileitis. no perienteric edema/fluid is noted. there is also mild concenteric wall thickening involving several mild abdominal small bowel loops. ruq ultrasound: mild diffuse fatty infiltration of the liver with prominent cbd. Vital Signs Period Temp Pulse Resp BP Sys/Isabel Pulse Ox Last 24 Hr 97.8 F-98.4 F 55-102 16-18 80-118/40-69 98-100 GENERAL: The patient is awake, alert, and fully oriented, in no acute distress. HEAD: Normal with no signs of trauma. EYES: PERRL, extraocular movements intact, sclera anicteric, conjunctiva clear. No ptosis. ENT: Ears normal, nares patent, oropharynx clear without exudates, moist mucous membranes. NECK: Trachea midline, full range of motion, supple. LUNGS: Breath sounds equal, clear to auscultation bilaterally, no wheezes, no crackles, no accessory muscle use. HEART: Regular rate and rhythm, S1, S2 without murmur, rub or gallop. ABDOMEN: Soft, nontender, nondistended, normoactive bowel sounds EXTREMITIES: 2+ pulses, warm, well-perfused, no edema. NEUROLOGICAL: Normal speech, gait not observed. PSYCH: Normal mood, normal affect. SKIN: Warm, dry, normal turgor, no rashes or lesions noted Laboratory Results - last 24 hr 11/05/19 11/05/19 11/05/19 16:00 16:00 16:00 WBC 8.6 RBC 4.47 Hgb 12.5 Hct 38.2 MCV 85.4 MCH 27.9 MCHC 32.6 RDW 15.6 D Plt Count 328 D MPV 7.0 L Absolute Neuts (auto) 7.6 Neutrophils % 88.6 H D Lymphocytes % 6.0 L D Monocytes % 4.7 Eosinophils % 0.6 Basophils % 0.1 Nucleated RBC % 0 Sodium 141 Potassium 3.6 Chloride 107 Carbon Dioxide 26 Anion Gap 7 L BUN 14.0 Creatinine 0.6 Est GFR (CKD-EPI)AfAm 136.87 Est GFR (CKD-EPI)NonAf 118.09 Random Glucose 99 Calcium 8.6 Magnesium 2.1 Total Bilirubin 0.9 AST 165 H ALT 91 H Alkaline Phosphatase 141 H Creatine Kinase 72 Troponin I < 0.02 Total Protein 7.6 Albumin 3.9 Lipase 66 L Urine Color Urine Appearance Urine pH Ur Specific [place] Urine Protein Urine Glucose (UA) Urine Ketones Urine Blood Urine Nitrite Urine Bilirubin Urine Urobilinogen Ur Leukocyte Esterase Urine WBC (Auto) Urine RBC (Auto) Urine Casts (Auto) U Epithel Cells (Auto) Urine Bacteria (Auto) Urine HCG, Qual Negative Blood Type Antibody Screen 11/05/19 11/06/19 11/06/19 16:00 00:31 09:55 WBC 4.6 RBC 3.80 Hgb 10.5 L Hct 32.5 MCV 85.4 MCH 27.6 MCHC 32.3 RDW 15.5 Plt Count 267 MPV 7.0 L Absolute Neuts (auto) 3.6 Neutrophils % 78.4 Lymphocytes % 14.0 D Monocytes % 7.0 Eosinophils % 0.4 Basophils % 0.2 Nucleated RBC % 0 Sodium Potassium Chloride Carbon Dioxide Anion Gap BUN Creatinine Est GFR (CKD-EPI)AfAm Est GFR (CKD-EPI)NonAf Random Glucose Calcium Magnesium Total Bilirubin AST ALT Alkaline Phosphatase Creatine Kinase Troponin I Total Protein Albumin Lipase Urine Color Yellow Urine Appearance Cloudy Urine pH 5.5 Ur Specific [place] 1.005 L Urine Protein Negative Urine Glucose (UA) Negative Urine Ketones Negative Urine Blood 2+ H Urine Nitrite Positive H Urine Bilirubin Negative Urine Urobilinogen 1.0 Ur Leukocyte Esterase Negative Urine WBC (Auto) 2 Urine RBC (Auto) 29 Urine Casts (Auto) 1 U Epithel Cells (Auto) 5.4 Urine Bacteria (Auto) 1634.9 Urine HCG, Qual Blood Type O POSITIVE Antibody Screen Negative 11/06/19 09:55 WBC RBC Hgb Hct MCV MCH MCHC RDW Plt Count MPV Absolute Neuts (auto) Neutrophils % Lymphocytes % Monocytes % Eosinophils % Basophils % Nucleated RBC % Sodium 142 Potassium 3.5 Chloride 108 H Carbon Dioxide 29 Anion Gap 6 L BUN 11.7 Creatinine 0.6 Est GFR (CKD-EPI)AfAm 136.87 Est GFR (CKD-EPI)NonAf 118.09 Random Glucose 100 Calcium 8.1 L Magnesium Total Bilirubin 1.0 AST 783 H ALT 616 H Alkaline Phosphatase 213 H Creatine Kinase Troponin I Total Protein 6.3 L Albumin 3.2 L Lipase Urine Color Urine Appearance Urine pH Ur Specific [place] Urine Protein Urine Glucose (UA) Urine Ketones Urine Blood Urine Nitrite Urine Bilirubin Urine Urobilinogen Ur Leukocyte Esterase Urine WBC (Auto) Urine RBC (Auto) Urine Casts (Auto) U Epithel Cells (Auto) Urine Bacteria (Auto) Urine HCG, Qual Blood Type Antibody Screen Active Medications Generic Name Dose Route Start Last Admin Trade Name Freq PRN Reason Stop Dose Admin Lactated Ringer's 1,000 ml in 1,000 mls @ 125 mls/hr 11/05/19 22:30 11/06/19 05:21 Lactated Ringers Solution IV 125 mls/hr ASDIR ANA LUISA Administration Morphine Sulfate 2 mg 11/06/19 01:20 Morphine Sulfate IVPUSH Q4H PRN PAIN LEVEL 6-10 Ondansetron HCl 4 mg 11/06/19 00:02 11/06/19 04:36 Zofran Injection IVPUSH 4 mg Q4H PRN Administration NAUSEA AND/OR VOMITING ASSESSMENT/PLAN: Problem List - Problems (1) Appendicitis, acute Assessment/Plan: s/p laparoscopic appendectomy, lavage post op care/monitoring repeat labs, advance diet per surgery, bowel regimen, dvt prophylaxis post op antibiotics: levaquin and flagyl surgery following Code(s): K35.80 - UNSPECIFIED ACUTE APPENDICITIS (2) Abnormal liver function tests Assessment/Plan: ast/alt elevated on admission, ast 165>783, alt 91>616 liver ultrasound: mild diffuse fatty infiltration of the liver with prominent cbd hepatitis panel ordered and pending gi consulted MRCP ordered to assess biliary tract Code(s): R94.5 - ABNORMAL RESULTS OF LIVER FUNCTION STUDIES (3) Prophylactic measure Assessment/Plan: fen fluid: LR 125 cc/hr monitor electrolytes labs in am full code npo Code(s): Z29.9 - ENCOUNTER FOR PROPHYLACTIC MEASURES, UNSPECIFIED Visit type - Emergency Visit Emergency Visit: Yes ED Registration Date: 11/05/19 Care time: The patient presented to the Emergency Department on the above date and was hospitalized for further evaluation of their emergent condition. - New Patient This patient is new to me today: Yes Date on this admission: 11/06/19 - Critical Care Critical Care patient: No - Discharge Referral Referred to [facility] Med P.C.: No
[2019-11-06] MEDS ORDERED: MIDAZOLAM HCL 2 MG/2 ML SINGLE DOSE VIAL ONE (12:10)
[2019-11-06] MEDS ORDERED: fentaNYL CITRATE 250 MCG/5 ML VIAL ONE (12:10)
[2019-11-06] MEDS ORDERED: ROCURONIUM BROMIDE 50 MG/5 ML SYRINGE ONE (12:10)
[2019-11-06] MEDS ORDERED: PROPOFOL 20 ML ONE (12:10)
[2019-11-06] MEDS ORDERED: DEXAMETHASONE SOD PHOSPHATE 4 MG/1 ML VIAL ONE (12:11)
[2019-11-06] MEDS ORDERED: LIDOCAINE HCL/PF 2% SDV 5ML VIAL ONE (12:11)
[2019-11-06] MEDS ORDERED: morphine SULFATE 4 MG/ML VIAL IVPB PRN (12:18)
[2019-11-06] MEDS ORDERED: oxyCODONE HCL 5 MG TABLET PO PRN ×2 (12:18→13:14)
--- NOTE | 2019-11-06 12:23 | OP ---
Operative Note - Note: Operative Date: 11/06/19 Pre-Operative Diagnosis: tip appendicitis, abnormal cbd, elevated lfts Operation: laparoscopic appendectomy, lavage Findings: enlarged tip of appendix Post-Operative Diagnosis: Same as Pre-op Surgeon: Hernandez Arteaga Anesthesiologist/CAR RENTAL AGENT: Ephraim Figueroa Anesthesia: General Specimens Removed: appendix Estimated Blood Loss (mls): 10 Operative Report Dictated: Yes
[2019-11-06] MEDS ORDERED: KETOROLAC TROMETHAMINE 30 MG/1 ML VIAL ONE (13:06)
[2019-11-06] MEDS ORDERED: NEOSTIGMINE METHYLSULFATE 0.5 MG/ML - 10 ML MDV ONE (13:06)
--- NOTE | 2019-11-06 13:06 | CONS ---
DATE OF CONSULTATION: 11/06/2019 REASON FOR CONSULTATION: Acute appendicitis. This is an emergency room consultation at the request of the emergency room physician. BRIEF HISTORY: This is a 34-year-old female who presents to [facility] with a 2-day history of abdominal pain that began in her periumbilical area, moved to her right lower quadrant with nausea and vomiting. She was noted on CAT scan to have an enlarged tip of her appendix consistent with a tip appendicitis. She is also status post cholecystectomy many years ago. She was noted as far back as 2011, to have a dilated bile duct at 7 mm seen on ultrasound. The CAT scan showed that she now has a 9-mm bile duct. She also had mildly elevated liver function tests in the emergency room that have risen overnight. Her AST went from 165 to 783. Her ALT went from 91 to 616, and her alkaline phosphatase went from 141 to 213. Request was made for surgical evaluation. Her white blood cell count has a shift but is normal. PAST MEDICAL HISTORY: Significant for anxiety. PAST SURGICAL HISTORY: As stated in HPI. HOME MEDICATIONS: Include fluoxetine. FAMILY HISTORY: Noncontributory. ALLERGIES: ASPIRIN, CODEINE, and PENICILLIN. SOCIAL HISTORY: Negative for alcohol, negative for tobacco. REVIEW OF SYSTEMS: General: Denies fatigue or malaise. Cardiac: Denies chest pain or palpitations. Respiratory: Denies shortness of breath or wheeze. Gastrointestinal: Admits to periumbilical and right lower quadrant pain radiating to her back with nausea. She denies diarrhea. Denies blood in her stool. She says she often has problems with her stomach. Genitourinary: Denies dysuria. Musculoskeletal: Denies joint pain, joint swelling. Psychiatric: Denies anxiety, depression, or hearing voices. PHYSICAL EXAMINATION: General: This is a well-developed, well-nourished 34-year-old female in no distress. Vital Signs: She is afebrile. Her vital signs are stable. HEENT: Her head is normocephalic. Sclerae anicteric. Neck: Supple. Chest: Clear. Abdomen: Soft. It is nondistended. She has mild tenderness in the epigastric region. She has mild tenderness around the umbilicus. She has moderate tenderness in the right lower quadrant. She has well-healed laparoscopic surgical scars. She has no rebound, no guarding. Extremities: No edema. IMAGING: As stated in HPI. ASSESSMENT: A 34-year-old female who appears to have 2 problems. She does have right lower quadrant pain, right lower quadrant tenderness, and an abnormal appendix, but the drywall hanger helper feels that this may be tip appendicitis. This is either tip appendicitis or an abnormal appendicitis possibly from a tumor. She also appears to have an issue with her bowel duct as it is enlarged. It is normal to have an enlarged bowel duct after cholecystectomy; however, this is more generous than would be expected in a 34-year-old female. She also has elevated transaminases as well as alkaline phosphatase with a normal bilirubin. I suspect that she may have a primary duct stone versus some other primary liver problem. The alkaline phosphatase suggests that there is irritation to the bowel duct itself, and the bile duct is noted to be enlarged. PLAN: At this point, she likely needs a GI workup including an MRI and an ERCP, but she also would benefit from an appendectomy in case this is appendicitis and also if this is a tumor of the appendix. I have offered the patient to proceed with appendectomy prior to workup of her abnormal liver function tests and abnormal bile duct or to proceed with that 1st. She prefers to proceed with surgery. Her is present. At this point, we will eliminate appendicitis as a possible source of sepsis. She understands that there is a possibility that the medications from surgery can also cause further irritation to the liver, and if her primary problem is actually a problem with her liver or her bile duct that obviously an appendectomy will not prevent that. But if this is appendicitis then this will remove that as a source of sepsis and will decrease confusion in the clinical picture. Risks and benefits of surgery have been explained to the patient in detail. These are including, but not limited to, the possibility of conversion to open, the possibility of injury to viscera or bladder, the possibility of staple line dehiscence, the possibility of infection, the possibility of future obstruction, the possibility of future hernia, the possibility of worsening of her liver injury from whatever is causing it, the possibility of developing cholangitis, which may be delayed in diagnosis because of postoperative pain clouding the picture. The patient wishes to proceed with surgery. There are also a multitude of medical risks including, but not limited to, cardiac, neurologic, pulmonary, and vascular complications, even . At this point, the patient is receiving Flagyl antibiotic as well as Levaquin, and we will proceed with surgery. She will need a gastroenterology evaluation after the surgery and possibly an MRI and possibly an ERCP. DO KRISTI BARKLEY/[id number]
[2019-11-06] MEDS ORDERED: GLYCOPYRROLATE 0.2 MG/1 ML VIAL ONE ×2 (13:07)
[2019-11-06] MEDS ORDERED: PROMETHAZINE HCL 25 MG/1 ML VIAL IVPUSH PRN (13:14)
--- NOTE | 2019-11-06 14:26 | CON.GI ---
Consult Consult Specialty:: GI Referred by:: Hospitalist service Reason for Consultation:: Abnormal LFTs - History of Present Illness Chief Complaint: Abdominal pain: limited information as patient just recovering from general anesthesia s/p Lap Appendectomy History of Present Illness: 34F admitted through [facility] for evaluation of progressive abdominal pain (patient points to her mid/upper abdomen). Pain progressed in intensity an she began vomiting as well. CT scan performed revealed enlarged tip of appendix. her transaminases as well as ALP were elevated on admission. CT scan also revealed her to be s/p cholecystectomy with prominent CBD of 9mm along with thickened terminal ileum / bowel loops. ABD US revealed fatty liver and an 8mm CBD Liver chemistries linda this morning. GI consult called routinely for elevated AST/ ALT. Dr. Kunz went to see the patient, however, she was already in the OR. Ms. Bucio denies history of excessive etoh use, IVDA/DA, blood transfusions. She states having had hepatitis when she was a child living in [facility]. She denies diarrhea, rectal bleeding. There is no family history of liver disease. Her liver chemistries were normal in 2015. - History Source History Provided By: Patient, Medical Record Limitations to Obtaining History: Other (Patient just received general anesthesia) - Past Medical History Hepatobiliary: Yes: Other (Hepatitis in childhood (? hepatitis A)) ...LMP: 07/03/13 ...: No Psych: Yes: Depression Additional Medical History: Denies - Past Surgical History Additional Surgical History: laparoscopic cholecystectomy 2007 - Alcohol/Substance Use Hx Alcohol Use: Yes (occaional) History of Substance Use: reports: None - Smoking History Smoking history: Never smoked Aproximately how many cigarettes per day: 0 - Social History Usual Living Arrangement: With Spouse Occupation: Digital Hardware Design Engineer Place of : Other ([facility]) History of Recent Travel: No Home Medications - Allergies Allergies/Adverse Reactions: Allergies Allergy/AdvReac Type Severity Reaction Status Date / Time aspirin Allergy Verified 11/05/19 16:13 codeine [Codeine] Allergy Verified 11/05/19 16:13 Penicillins Allergy Verified 11/05/19 16:13 - Home Medications Home Medications: Ambulatory Orders Fluoxetine HCl [Prozac -] 20 mg PO DAILY 11/05/19 Nitrofurantoin Monohyd/M-Cryst [Macrobid -] 100 mg PO BID #14 capsule 11/05/19 Ondansetron HCl [Zofran] 4 mg PO TID PRN #12 tablet 11/05/19 Oxycodone HCl/Acetaminophen [Percocet 5-325 mg Tablet] 1 - 2 tab PO Q6H PRN #12 tab MDD 4 11/05/19 Family Medical History Other Family History: Mother: Alive: healthy. Father: : 30's: [place]. 1 brother, 1 sister: healthy. 3 healthy children. No family history of liver disease, IBD, Colorectal cancer Review of Systems - Review of Systems Constitutional: denies: Chills, Fever Cardiovascular: denies: Chest Pain Gastrointestinal: reports: Abdominal Pain, Nausea, Vomiting. denies: Diarrhea, Rectal Bleeding Neurological: reports: Other (arousable, somnolent (received general anesthesia) ) Physical Exam-GI Vital Signs: Vital Signs Temperature 98.0 F 11/06/19 13:22 Pulse Rate 53 L 11/06/19 14:00 Respiratory Rate 16 11/06/19 14:00 Blood Pressure 106/56 L 11/06/19 14:00 O2 Sat by Pulse Oximetry (%) 100 11/06/19 14:00 Constitutional: Yes: Calm Eyes: No: Sclera Icterus Cardiovascular: Yes: Bradycardia. No: Murmur Respiratory: Yes: CTA Bilaterally Gastrointestinal Inspection: Yes: Scars (trochar scars in lower abdomen.). No: Distention ...Auscultate: Yes: Normoactive Bowel Sounds ...Palpate: Yes: Soft, Tenderness (TTP Mid). No: Hepatomegaly ...Percussion: No: Tympanitic Edema: No (No LE edema) Neurological: Yes: Alert (somnolent) Labs: CBC, BMP 11/06/19 09:55 11/06/19 09:55 Hepatic Panel Total Bilirubin 1.0 mg/dL (0.2-1) 11/06/19 09:55 AST 783 U/L (15-37) H 11/06/19 09:55 ALT 616 U/L (13-61) H 11/06/19 09:55 Alkaline Phosphatase 213 U/L (45-117) H 11/06/19 09:55 Albumin 3.2 g/dl (3.4-5.0) L 11/06/19 09:55 Imaging - Results Ultrasound: Report Reviewed (fatty liver and 8mm CBD) Problem List - Problems (1) Abnormal liver function tests Assessment/Plan: Given complaints of mid / upper abdominal pain accompanying abnormal liver chemistries on admission, hepatobiliary etiology will need to be excluded. I explained this to Ms. Alejo, however she was recovering from appendectomy and still somewhat somnolent. Advise: IV Hydration per primary team Ordered repeat liver chemistries for this evening and morning Ordered MRCP to assess biliary tract. when patient is able to cooperate as she is s/p Lap Claire. she is S/P Lap Claire and seeing a mildly dilated CBD in this setting may reflect phssiologic change. Ordered hepatitis serologies Continue Levaquin and flagyl for now until developing biliary tract obstruction is excluded. Code(s): R94.5 - ABNORMAL RESULTS OF LIVER FUNCTION STUDIES
[2019-11-06] MEDS ORDERED: LACTATED RINGERS SOLUTION 1,000 ML IV ONE (16:00)
--- NOTE | 2019-11-06 16:58 | OP ---
DATE OF OPERATION: 11/06/2019 PREOPERATIVE DIAGNOSIS: Tip appendicitis, abnormal appendix. POSTOPERATIVE DIAGNOSIS: Tip appendicitis, abnormal appendix. PROCEDURE: Laparoscopic appendectomy, lavage. SURGEON: Hernandez Arteaga DO PRESSURE TESTING TECHNICIAN: None. ANESTHESIOLOGIST: Ephraim Figueroa MD SPECIMEN: Appendix. ESTIMATED BLOOD LOSS: Minimal. DRAINS: None. COMPLICATIONS: None. DISPOSITION: To the recovery room in stable condition. BRIEF HISTORY: [id number] male presented to [facility] Emergency Room with abdominal pain. She was found to have right lower quadrant tenderness. She had a CAT scan of her abdomen and pelvis, showing an abnormal appendix with a dilated tip consistent with tip appendicitis. She was also noted to have mildly elevated liver function tests as shot up overnight and a dilated common bile duct after cholecystectomy. At this point she presents for appendectomy and will need a postop workup of her dilated bile duct and abnormal liver function tests. DESCRIPTION OF PROCEDURE: The patient was placed in the supine position. General anesthesia was initiated. The abdomen was prepped and draped in sterile fashion. A Rubin catheter was inserted. A vertical incision was made infraumbilical, with scalpel used to go through skin and subcutaneous tissue. The fascia was then lifted with a Tanya clamp and incised vertically. The peritoneum was entered bluntly. A 0 Vicryl stitch was placed across the fascial defect and used to secure the Rin trocar. Pneumoperitoneum was then created, followed by the insertion of a 5-mm 30-degree laparoscope. Two 5-mm trocars were placed, one suprapubic and one in the left lower quadrant. Attention was turned toward the appendix. It was elongated. The tip was enlarged and mildly inflamed, consistent with either an abnormal tip of the appendix or early tip appendicitis. A window was made at its base. The LigaSure device was used to divide the mesoappendix with multiple welds. The Ethicon Endo LAURENCE Multi-Fire Purple Load 45-mm stapler was used to take the appendix at its base in 1 firing. The staple line was inspected. It was intact. There was no bleeding, no breaks, no sign of ischemia. The appendix was placed in a specimen bag, removed through the infraumbilical trocar site, and sent to Pathology marked as "specimen." A limited lavage was done and all return was clear. The trocars were removed under direct visualization and no bleeding was noted as pneumoperitoneum was released. The fascia of the infraumbilical trocar site was then closed with multiple interrupted 0 Vicryl sutures. Then the 3 skin incisions were closed with Biosyn. Dermabond dressing was placed over all. The patient tolerated the procedure well, with no complications. At this point the operation terminated. PLAN: Patient will be now evaluated by the GI Service for elevated liver function tests and her dilated common bile duct. She is okay to undergo an MRCP, if necessary. I have discussed the case with Dr. Duran Helm. DO KRISTI BARKLEY/[id number] MTDD
[2019-11-06] MEDS: oxyCODONE HCL 5 MG TABLET PO PRN (20:01)
[2019-11-07] MEDS: oxyCODONE HCL 5 MG TABLET PO PRN (00:47)
[2019-11-07] MEDS: LACTATED RINGERS SOLUTION 1,000 ML/1,000 ML INFUS.BAG IV SCH ×2 (00:56→01:43)
[2019-11-07 01:23] LABS: ALBUMIN 3.3 g/dl (3.4-5.0); BILIRUBIN,TOTAL 0.4 mg/dL (0.2-1); BLOOD UREA NITROGEN 9.5 mg/dL (7-18); CALCIUM 8.1 mg/dL (8.5-10.1); CREATININE 0.5 mg/dL (0.55-1.3); POTASSIUM 3.6 mmol/L (3.5-5.1); TOT PROT 6.2 g/dl (6.4-8.2)
[2019-11-07 08:46] LABS: BASO % 0.2 % (0-2.0); EOS % 0.1 % (0-4.5); HEMATOCRIT 29.2 % (32.4-45.2); HEMOGLOBIN 9.5 GM/dL (10.7-15.3); LYMPH % 19.7 % (8-40); MCH 27.5 pg (25.7-33.7); MCHC 32.6 g/dl (32.0-36.0); MEAN CELL VOLUME 84.4 fl (80-96); MEAN PLT VOLUME 7.1 fl (7.5-11.1); MONO % 7.6 % (3.8-10.2); NEUT % 72.4 % (42.8-82.8); PLATELET COUNT 244 K/MM3 (134-434); RBC 3.46 M/mm3 (3.60-5.2); RDW 15.1 % (11.6-15.6); WHITE BLOOD COUNT 8.2 K/mm3 (4.0-10.0)
--- NOTE | 2019-11-07 09:13 | PN ---
Progress Note (short form) - Note Progress Note: SURGERY 34yo F s/p lap appy POD 1, pt seen and examined at bedside. Pt states that she is feeling much better. Pt denies n/v, fever, chills, cp, or SOB. Pt is urinating and ambulating well. Pt states that she is hungry and wants to go home. Pt had MRCP done yesterday but has yet to be read. Last Vital Signs Temp Pulse Resp BP Pulse Ox 98.9 F 73 18 108/49 L 100 11/07/19 06:57 11/07/19 06:57 11/07/19 06:57 11/07/19 06:57 11/06/19 21:00 CBC, BMP 11/07/19 08:16 PE: Gen: A&O X3 Resp: breathing comfortably Abd: soft, nondistended, nontender, incisions clean with no erythema or discharge Ext: no edema Problem List - Problems (1) Appendicitis, acute Assessment/Plan: Plan -pt appears to be doing well from surgery standpoint, pt is cleared by surgery. -f/up with GI for recs on elevated LFTs -pt should follow up with Dr. Arteaga in the office next week for post op check. Pt discussed with Dr. Arteaga who agrees with plan Code(s): K35.80 - UNSPECIFIED ACUTE APPENDICITIS
[2019-11-07 09:34] LABS: ALBUMIN 2.9 g/dl (3.4-5.0); BILIRUBIN,DIRECT 0.2 mg/dL (0.0-0.2); BILIRUBIN,TOTAL 0.3 mg/dL (0.2-1); BLOOD UREA NITROGEN 12.6 mg/dL (7-18); CREATININE 0.5 mg/dL (0.55-1.3); MAGNESIUM 1.9 mg/dL (1.8-2.4); POTASSIUM 3.5 mmol/L (3.5-5.1); TOT PROT 5.4 g/dl (6.4-8.2)
[2019-11-07] MEDS: PANTOPRAZOLE SODIUM 40 MG VIAL IVPUSH SCH (09:58)
[2019-11-07] MEDS: ENOXAPARIN NA (PORCINE) 40 MG/0.4 ML DISP.SYRIN SQ SCH ×2 (09:59→10:12)
--- NOTE | 2019-11-07 11:36 | EKG ---
Test Reason : Blood Pressure : / mmHG Vent. Rate : 073 BPM Atrial Rate : 073 BPM P-R Int : 124 ms QRS Dur : 090 ms QT Int : 400 ms P-R-T Axes : 038 060 045 degrees QTc Int : 440 ms NORMAL SINUS RHYTHM NORMAL ECG WHEN COMPARED WITH ECG OF 15-OCT-2011 21:41, QT HAS LENGTHENED Confirmed by KARLEE MILNER MD ([id number]) on 11/07/2019 11:36:14 AM Referred By: Confirmed By:KARLEE MILNER MD
--- NOTE | 2019-11-07 12:54 | PN ---
Physical Exam: SUBJECTIVE: Patient seen and examined at the bedside. she denies any pain, feels sore, asking about discharge and explained that we are monitoring her liver function. OBJECTIVE: Patient is a 34 year old female with PMH of cholecystectomy who presents with upper abdominal pain for 3 days. Pain began in the upper/periumbilical region and has localized to the RLQ. She complains of associated nausea, 6 episodes of NBNB emesis, 2 episodes of non-bloody diarrhea and fatigue. Pt has had a decreased appetite. She denies fevers, chills, urinary symptoms. She is s/p appendectomy post op Day 1. imaging: ct abd/pelvis: appendiceal tip mildly dilated with apparent slight concenteric wall thickening in the same region, possible appendicitis. no associated periappendiceal fluid/edema. the terminal ileum demonstrates mild concentric wall thickening which may be in the basis of acute or chronic ileitis. no perienteric edema/fluid is noted. there is also mild concenteric wall thickening involving several mild abdominal small bowel loops. ruq ultrasound: mild diffuse fatty infiltration of the liver with prominent cbd. 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 HEAD: Normal with no signs of trauma. EYES: PERRL, extraocular movements intact, sclera anicteric, conjunctiva clear. No ptosis. ENT: Ears normal, nares patent, oropharynx clear without exudates, moist mucous membranes. NECK: Trachea midline, full range of motion, supple. LUNGS: Breath sounds equal, clear to auscultation bilaterally, no wheezes HEART: Regular rate and rhythm, S1, S2 without murmur, rub or gallop. ABDOMEN: surgical incisions c/d/i. abdomen, soft, no pain or tenderness, reports tolerating diet. no bm yet EXTREMITIES: 2+ pulses, warm, well-perfused, no edema. NEUROLOGICAL: Normal speech, gait not observed. PSYCH: Normal mood, normal affect. Laboratory Results - last 24 hr 11/05/19 11/05/19 11/06/19 19:05 19:05 22:32 WBC RBC Hgb Hct MCV MCH MCHC RDW Plt Count MPV Absolute Neuts (auto) Neutrophils % Lymphocytes % Monocytes % Eosinophils % Basophils % Nucleated RBC % Sodium 139 Potassium 3.6 Chloride 107 Carbon Dioxide 23 Anion Gap 9 BUN 9.5 Creatinine 0.5 L Est GFR (CKD-EPI)AfAm 145.33 Est GFR (CKD-EPI)NonAf 125.39 Random Glucose 96 Calcium 8.1 L Magnesium Total Bilirubin 0.4 Direct Bilirubin AST 355 H ALT 517 H Alkaline Phosphatase 211 H Total Protein 6.2 L Albumin 3.3 L Hep A IgM Ab Confirm Negative Negative Hepatitis A Ab Total Positive H Hep Bs Antigen Negative Hep B Core IgM Ab Negative Hepatitis C Ab (EIA) 0.1 11/07/19 11/07/19 08:16 08:16 WBC 8.2 RBC 3.46 L Hgb 9.5 L Hct 29.2 L MCV 84.4 MCH 27.5 MCHC 32.6 RDW 15.1 Plt Count 244 MPV 7.1 L Absolute Neuts (auto) 6.0 Neutrophils % 72.4 Lymphocytes % 19.7 D Monocytes % 7.6 Eosinophils % 0.1 Basophils % 0.2 Nucleated RBC % 0 Sodium 140 Potassium 3.5 Chloride 107 Carbon Dioxide 26 Anion Gap 7 L BUN 12.6 Creatinine 0.5 L Est GFR (CKD-EPI)AfAm 145.33 Est GFR (CKD-EPI)NonAf 125.39 Random Glucose 82 Calcium 8.0 L Magnesium 1.9 Total Bilirubin 0.3 Direct Bilirubin 0.2 AST 197 H ALT 375 H Alkaline Phosphatase 166 H Total Protein 5.4 L Albumin 2.9 L Hep A IgM Ab Confirm Hepatitis A Ab Total Hep Bs Antigen Hep B Core IgM Ab Hepatitis C Ab (EIA) Active Medications Generic Name Dose Route Start Last Admin Trade Name Freq PRN Reason Stop Dose Admin Enoxaparin Sodium 40 mg 11/07/19 10:00 11/07/19 10:12 Lovenox - SQ Not Given DAILY ANA LUISA Metronidazole 500 mg in 100 mls @ 100 mls/hr 11/06/19 18:00 11/07/19 09:58 Flagyl 500mg Premixed Ivpb - IVPB 100 mls/hr Q8H-IV ANA LUISA Administration Lactated Ringer's 1,000 ml in 1,000 mls @ 100 mls/hr 11/06/19 17:00 11/07/19 01:43 Lactated Ringers Solution IV 100 mls/hr ASDIR ANA LUISA Administration Ondansetron HCl 4 mg 11/06/19 12:18 Zofran Injection IVPUSH Q6H PRN NAUSEA Oxycodone HCl 5 mg 11/06/19 13:14 Roxicodone - PO Q4H PRN PAIN LEVEL 1-5 Oxycodone HCl 10 mg 11/06/19 13:14 11/07/19 00:47 Roxicodone - PO 10 mg Q4H PRN Administration PAIN LEVEL 6-10 Pantoprazole Sodium 40 mg 11/07/19 10:00 11/07/19 09:58 Protonix Iv IVPUSH 40 mg DAILY ANA LUISA Administration ASSESSMENT/PLAN: Problem List - Problems (1) Appendicitis, acute Assessment/Plan: s/p laparoscopic appendectomy, lavage pod day 1. cleared for discharge home by surgery follow up outpatient. will discharge once cleared by GI for elevated liver enzymes. 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 - New Patient This patient is new to me today: No - Critical Care Critical Care patient: No - Discharge Referral Referred to [facility] Med P.C.: No
--- NOTE | 2019-11-07 13:04 | PN.GI ---
GI Progress Note Subjective: Pt seen/examined at bedside, s/p lap appendectomy. Mild soreness at surgical sites, otherwise feeling better. Tolerating po, no flatus or bm yet. No prior h/o liver disease. Had etoh around holidays but denies heavy drinking. - Objective Vital Signs: Vital Signs Temperature 98.9 F 11/07/19 06:57 Pulse Rate 73 11/07/19 06:57 Respiratory Rate 18 11/07/19 06:57 Blood Pressure 108/49 L 11/07/19 06:57 O2 Sat by Pulse Oximetry (%) 100 11/06/19 21:00 Constitutional: Well Nourished, No Distress, Calm Cardiovascular: Yes: WNL, Regular Rate and Rhythm Respiratory: Yes: WNL, Regular, CTA Bilaterally ...Palpate: Yes: Other (Abd soft, mildly tender mostly at surgical incision sites, no rebound, guarding or rigidity) Labs: CBC, BMP 11/07/19 08:16 11/07/19 08:16 Problem List - Problems (1) Abnormal liver function tests Assessment/Plan: 34yo female h/o cholecystectomy presenting with abdominal pain s/p lap appendectomy pod #1 with elevated LFTs. Clinically improving. LFTs also downtrending, predominantly hepatocellular injury. 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 LFTs normal in 2015. Exact etiology unclear ?medications vs sepsis/inflammation vs remnant sludge/microlithiasis. -Recommend continue to closely monitor LFT trend to ensure normalization -Await results of hepatitis panel -Avoid nonessential hepatotoxic medications -Further post op care per surgery Code(s): R94.5 - ABNORMAL RESULTS OF LIVER FUNCTION STUDIES
--- NOTE | 2019-11-07 15:32 | PATH ---
Surgical Pathology Report Patient Name: BALBINA AVILA [facility]. Rec. #: [id number] /Age/Gender: 1985 (Age: 34) / F Account: [id number] Location: [address] [place] [address]/[facility] Taken: 11/06/2019 Received: 11/06/2019 Reported: 11/07/2019 Physicians: Hernandez Arteaga M.D. Specimen(s) Received APPENDIX Clinical History Abdominal pain Final Diagnosis APPENDIX, LAPAROSCOPIC APPENDECTOMY: ACUTE APPENDICITIS. Electronically Signed Heather Hernandez M.D. Gross Description Received in formalin, labeled "appendix," is a 9.3 cm. in length vermiform appendix with a stapled margin of resection and minimal attached fat. The serosa is gambino-pink and smooth. Sectioning reveals an unremarkable lumen. The wall of the appendix averages 0.1 cm. in thickness. Facility Operations Manager sections are submitted in one cassette. /11/06/2019 saudi/11/06/2019
[2019-11-08] MEDS ORDERED: FLU VACCINE QUAD 60 MCG/0.5 ML (MDV 19-20) IM ONE (10:00)
[2019-11-08] MEDS ORDERED: PANTOPRAZOLE 40 MG TABLET PO SCH (10:30)
[2019-11-08] MEDS: ENOXAPARIN NA (PORCINE) 40 MG/0.4 ML DISP.SYRIN SQ SCH (11:03)
[2019-11-08] MEDS: PANTOPRAZOLE SODIUM 40 MG VIAL IVPUSH SCH (11:09)
[2019-11-08] MEDS ORDERED: CEFTRIAXONE 1 GM in DEXTROSE 5%-WATER - 50 ML IVPB ONE (12:13)
[2019-11-08 13:13] LABS: BASO % 0.2 % (0-2.0); EOS % 1.2 % (0-4.5); HEMATOCRIT 29.8 % (32.4-45.2); HEMOGLOBIN 9.7 GM/dL (10.7-15.3); LYMPH % 27.1 % (8-40); MCH 27.7 pg (25.7-33.7); MCHC 32.7 g/dl (32.0-36.0); MEAN CELL VOLUME 84.8 fl (80-96); MONO % 7.6 % (3.8-10.2); NEUT % 63.9 % (42.8-82.8); PLATELET COUNT 256 K/MM3 (134-434); RBC 3.51 M/mm3 (3.60-5.2); RDW 15.3 % (11.6-15.6); WHITE BLOOD COUNT 5.7 K/mm3 (4.0-10.0)
[2019-11-08 13:54] LABS: BILIRUBIN,TOTAL 0.2 mg/dL (0.2-1); BLOOD UREA NITROGEN 11.8 mg/dL (7-18); CALCIUM 8.1 mg/dL (8.5-10.1); CREATININE 0.6 mg/dL (0.55-1.3); POTASSIUM 3.7 mmol/L (3.5-5.1); TOT PROT 5.8 g/dl (6.4-8.2)
[2019-11-08] MEDS ORDERED: NITROFURANTOIN MACROCRYSTAL 50 MG CAPSULE (FP) PO SCH (18:00)
[2019-11-08 19:06] LABS: HEP B CORE AB, TOT Negative (Negative)
--- NOTE | 2019-11-08 19:09 | PN ---
Physical Exam: SUBJECTIVE: Patient seen and examined OBJECTIVE: Vital Signs Period Temp Pulse Resp BP Sys/Isabel Pulse Ox Last 24 Hr 98.4 F-98.8 F 64-82 18-18 102-118/61-74 100 GENERAL: The patient is awake, alert, and fully oriented, in no acute distress. HEAD: Normal with no signs of trauma. EYES: PERRL, extraocular movements intact, sclera anicteric, conjunctiva clear. No ptosis. ENT: Ears normal, nares patent, oropharynx clear without exudates, moist mucous membranes. NECK: Trachea midline, full range of motion, supple. LUNGS: Breath sounds equal, clear to auscultation bilaterally, no wheezes, no crackles, no accessory muscle use. HEART: Regular rate and rhythm, S1, S2 without murmur, rub or gallop. ABDOMEN: Soft, nontender, nondistended, normoactive bowel sounds, no guarding, no rebound, no hepatosplenomegaly, no masses. EXTREMITIES: 2+ pulses, warm, well-perfused, no edema. NEUROLOGICAL: Cranial nerves II through XII grossly intact. Normal speech, gait not observed. PSYCH: Normal mood, normal affect. SKIN: Warm, dry, normal turgor, no rashes or lesions noted Laboratory Results - last 24 hr 11/07/19 11/08/19 11/08/19 08:16 12:54 12:54 WBC 5.7 RBC 3.51 L Hgb 9.7 L Hct 29.8 L MCV 84.8 MCH 27.7 MCHC 32.7 RDW 15.3 Plt Count 256 MPV 7.0 L Absolute Neuts (auto) 3.7 Neutrophils % 63.9 Lymphocytes % 27.1 D Monocytes % 7.6 Eosinophils % 1.2 D Basophils % 0.2 Nucleated RBC % 0 Sodium 140 Potassium 3.7 Chloride 107 Carbon Dioxide 27 Anion Gap 6 L BUN 11.8 Creatinine 0.6 Est GFR (CKD-EPI)AfAm 136.87 Est GFR (CKD-EPI)NonAf 118.09 Random Glucose 94 Calcium 8.1 L Total Bilirubin 0.2 AST 63 H ALT 244 H Alkaline Phosphatase 153 H Total Protein 5.8 L Albumin 3.0 L Hep A IgM Ab Confirm Negative Hepatitis A Ab Total Positive H Hep Bs Antigen Negative Hep Bs Antibody Non reactive Hep B Core Total Ab Negative Hep B Core IgM Ab Negative Hepatitis Be Antibody Negative Hepatitis Be Antigen Negative Hep C Ab Diagnostic 0.1 Active Medications Generic Name Dose Route Start Last Admin Trade Name Freq PRN Reason Stop Dose Admin Enoxaparin Sodium 40 mg 11/07/19 10:00 11/08/19 11:03 Lovenox - SQ Not Given DAILY [facility] Nitrofurantoin Macrocrystals 100 mg 11/08/19 18:00 11/08/19 18:32 Macrodantin - PO 100 mg Q6HPO [facility] Administration Ondansetron HCl 4 mg 11/06/19 12:18 Zofran Injection IVPUSH Q6H PRN NAUSEA Oxycodone HCl 5 mg 11/06/19 13:14 11/07/19 18:22 Roxicodone - PO 5 mg Q4H PRN Administration PAIN LEVEL 1-5 Oxycodone HCl 10 mg 11/06/19 13:14 11/07/19 00:47 Roxicodone - PO 10 mg Q4H PRN Administration PAIN LEVEL 6-10 Pantoprazole Sodium 40 mg 11/08/19 10:30 11/08/19 11:09 Protonix - PO 40 mg DAILY [facility] Administration ASSESSMENT/PLAN: Problem List - Problems (1) Appendicitis, acute Code(s): K35.80 - UNSPECIFIED ACUTE APPENDICITIS (2) Abnormal liver function tests Code(s): R94.5 - ABNORMAL RESULTS OF LIVER FUNCTION STUDIES (3) Prophylactic measure Code(s): Z29.9 - ENCOUNTER FOR PROPHYLACTIC MEASURES, UNSPECIFIED
[2019-11-08 19:11] VITALS: BP 124/68; PULSE 78; TEMP 98.4
--- NOTE | 2019-11-08 19:15 | DS ---
Physical Exam: SUBJECTIVE: Patient seen and examined at the bedside. for d/c home. patient discharged home then eloped before discharge papers were handed to her. returned later to get her discharge instructions. OBJECTIVE: elevated liver enzymes trending down, likely secondary to acute appendicitis, vomiting and dehydration cleared by gi to d/c home OBJECTIVE: Patient is a 34 year old female with PMH of cholecystectomy who presents with upper abdominal pain for 3 days. Pain began in the upper/periumbilical region and has localized to the RLQ. She complains of associated nausea, 6 episodes of NBNB emesis, 2 episodes of non-bloody diarrhea and fatigue. Pt has had a decreased appetite. She denies fevers, chills, urinary symptoms. She is s/p appendectomy post op Day 1. imaging: ct abd/pelvis: appendiceal tip mildly dilated with apparent slight concenteric wall thickening in the same region, possible appendicitis. no associated periappendiceal fluid/edema. the terminal ileum demonstrates mild concentric wall thickening which may be in the basis of acute or chronic ileitis. no perienteric edema/fluid is noted. there is also mild concenteric wall thickening involving several mild abdominal small bowel loops. ruq ultrasound: mild diffuse fatty infiltration of the liver with prominent cbd. 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 HEAD: Normal with no signs of trauma. EYES: PERRL, extraocular movements intact, sclera anicteric, conjunctiva clear. ENT: Ears normal, nares patent, oropharynx clear without exudates, moist mucous membranes. NECK: Trachea midline, full range of motion, supple. LUNGS: Breath sounds equal, clear to auscultation bilaterally, no wheezes, no crackles, no accessory muscle use. HEART: Regular rate and rhythm, S1, S2 without murmur, rub or gallop. ABDOMEN: Soft, nontender, nondistended, normoactive bowel sounds, no guarding, no rebound, no hepatosplenomegaly, no masses. EXTREMITIES: 2+ pulses, warm, well-perfused, no edema. NEUROLOGICAL: Cranial nerves II through XII grossly intact. Normal speech, gait not observed. PSYCH: Normal mood, normal affect. SKIN: Warm, dry, normal turgor, no rashes or lesions noted. LABS Laboratory Results - last 24 hr 11/07/19 11/08/19 11/08/19 08:16 12:54 12:54 WBC 5.7 RBC 3.51 L Hgb 9.7 L Hct 29.8 L MCV 84.8 MCH 27.7 MCHC 32.7 RDW 15.3 Plt Count 256 MPV 7.0 L Absolute Neuts (auto) 3.7 Neutrophils % 63.9 Lymphocytes % 27.1 D Monocytes % 7.6 Eosinophils % 1.2 D Basophils % 0.2 Nucleated RBC % 0 Sodium 140 Potassium 3.7 Chloride 107 Carbon Dioxide 27 Anion Gap 6 L BUN 11.8 Creatinine 0.6 Est GFR (CKD-EPI)AfAm 136.87 Est GFR (CKD-EPI)NonAf 118.09 Random Glucose 94 Calcium 8.1 L Total Bilirubin 0.2 AST 63 H ALT 244 H Alkaline Phosphatase 153 H Total Protein 5.8 L Albumin 3.0 L Hep A IgM Ab Confirm Negative Hepatitis A Ab Total Positive H Hep Bs Antigen Negative Hep Bs Antibody Non reactive Hep B Core Total Ab Negative Hep B Core IgM Ab Negative Hepatitis Be Antibody Negative Hepatitis Be Antigen Negative Hep C Ab Diagnostic 0.1 HOSPITAL COURSE: Date of Admission:11/05/19 Date of Discharge: 11/08/19 Minutes to complete discharge: 60 Discharge Summary Problems reviewed: Yes Reason For Visit: CHEST PAIN/ABD PAIN Current Active Problems Abnormal liver function tests (Acute) Appendicitis, acute (Acute) Prophylactic measure (Acute) UTI (urinary tract infection) (Acute) Condition: Improved - Instructions Diet, Activity, Other Instructions: Mrs Bucio: You will be discharged home today. Please follow up with Dr. Arteaga for a post op visit. You will need to have your liver enzymes repeated with your primary care doctor. Your enzymes were elevated here and they have been improving. We jose l a hepatitis panel and it is still not resulted. You were found to have a urinary tract infection and have been prescribed Macrobid every 6 hours for 5 more days. Thank you for allowing us to care for you. Referrals: Darrin Galeas DO [Staff Physician] - Fransisco Pedro MD [Primary Care Provider] - Disposition: ELOPED - Home Medications Comprehensive Discharge Medication List: Ambulatory Orders Fluoxetine HCl [Prozac -] 20 mg PO DAILY 11/05/19 Nitrofurantoin Monohyd/M-Cryst [Macrobid -] 100 mg PO BID #14 capsule 11/05/19 Ondansetron HCl [Zofran] 4 mg PO TID PRN #12 tablet 11/05/19 Oxycodone HCl/Acetaminophen [Percocet 5-325 mg Tablet] 1 - 2 tab PO Q6H PRN #12 tab MDD 4 11/05/19 Nitrofurantoin Macrocrystal [Macrodantin -] 100 mg PO Q6HPO #20 capsule Pantoprazole Sodium [Protonix -] 40 mg PO DAILY #30 tablet.ec 11/08/19 Problem List - Problems (1) Appendicitis, acute Assessment/Plan: s/p laparoscopic appendectomy, lavage pod day 2. cleared for discharge home by surgery follow up outpatient. Code(s): K35.80 - UNSPECIFIED ACUTE APPENDICITIS (2) Abnormal liver function tests Assessment/Plan: ast/alt elevated on admission, now trending down gi follow up as an outpatient Code(s): R94.5 - ABNORMAL RESULTS OF LIVER FUNCTION STUDIES (3) Prophylactic measure Assessment/Plan: discharge home Code(s): Z29.9 - ENCOUNTER FOR PROPHYLACTIC MEASURES, UNSPECIFIED This patient is new to me today: Yes Date on this admission: 11/24/19 Emergency Visit: No Critical Care patient: No - Discharge Referral Referred to [facility] No
--- NOTE | 2019-11-08 19:18 | PN ---
Progress Note (short form) - Note Progress Note: coverage for Dr Helm ask if patient can be discharged pts lFTS trending downward , Hep profile Hep A IGG postive, most likely secondary to sepsis, and ischemia d/w with hospitalist, pt is asymptomatic. Ask her to inform patient to followup with Dr Helm for further w/u as an outpatient
== END 2019-11-08 19:41 | disposition left against medical advice (07) | DRG 225 ==
LOC: JER 15:25 → JERBED 23:25 → J5S 11-06 05:22
PROVIDERS: ADMIT Internal Medicine; ATTEND Nurse Practitioner Family
PROC: 0DTJ4ZZ Resection of Appendix, Percutaneous Endoscopic Approach (ICD-10-PCS; principal; 2019-11-06 11:30)
DX: K35.80 Unspecified acute appendicitis (principal); R94.5 Abnormal results of liver function studies; K52.9 Noninfective gastroenteritis and colitis, unspecified; F41.9 Anxiety disorder, unspecified; N39.0 Urinary tract infection, site not specified; K83.8 Other specified diseases of biliary tract; K76.0 Fatty (change of) liver, not elsewhere classified; E86.0 Dehydration; R74.0 Nonspecific elevation of levels of transaminase and lactic acid dehydrogenase [LDH]
CPT/HCPCS: 36415; 71046-TC-FY; 74177-TC; 74181-TC; 76700-TC; 80053; 80074; 80076; 81003; 82550; 83690; 83735; 84484; 84703; 85025; 86704; 86706; 86707; 86708; 86709; 86803; 86850; 86900; 86901; 87040; 87045; 87046; 87086; 87186; 87324; 87340; 87449; 88304-TC; 93005; 93010; 94010; 94760; 99283-25; G0008; J7030; Q2036; Q9967

== ENCOUNTER 2021-05-07 08:33 | Emergency (ER) | payer OTHER ==
[2021-05-07 08:48] VITALS: BMI 28.8
[2021-05-07] MEDS ORDERED: ACETAMINOPHEN 500 MG TABLET (FP) PO ONE (09:07)
[2021-05-07] MEDS ORDERED: LACTATED RINGERS SOLUTION 1000 ML INFUS.BAG IV ONE (09:07)
[2021-05-07] MEDS ORDERED: MAG HYDROX/AL HYDROX/SIMETH 30 ML UNIT-DOSE CUP PO ONE (09:08)
[2021-05-07] MEDS ORDERED: FAMOTIDINE 20 MG/50 ML IVPB 20 MG/50 ML MG IVPB ONE ×2 (09:08→09:22)
[2021-05-07] MEDS ORDERED: ONDANSETRON 4 MG/2 ML VIAL IVPUSH ONE (09:09)
[2021-05-07] MEDS ORDERED: ACETAMINOPHEN INJECTION 100 ML IVPB ONE (09:21)
[2021-05-07] MEDS ORDERED: ACETAMINOPHEN 1000 MG/100 ML VIAL (NON FORMULARY) IVPB ONE (09:21)
[2021-05-07] MEDS ORDERED: ONDANSETRON 4 MG/2 ML VIAL ONE (09:22)
[2021-05-07] MEDS ORDERED: MAG HYDROX/AL HYDROX/SIMETH 30 ML UNIT-DOSE CUP ONE (09:22)
[2021-05-07 09:32] LABS: BASO % 0.3 % (0-2.0); EOS % 0.3 % (0-4.5); HEMATOCRIT 36.3 % (32.4-45.2); HEMOGLOBIN 11.9 GM/dL (10.7-15.3); LYMPH % 4.4 % (8-40); MCH 26.6 pg (25.7-33.7); MCHC 32.8 g/dl (32.0-36.0); MEAN PLT VOLUME 6.4 fl (7.5-11.1); PLATELET COUNT 318 10^3/uL (134-434); RBC 4.48 M/mm3 (3.60-5.2); RDW 16.3 % (11.6-15.6); WHITE BLOOD COUNT 8.2 K/mm3 (4.0-10.0)
[2021-05-07 09:56] LABS: CHLORIDE 106 mmol/L (98-107); SODIUM 138 mmol/L (136-145)
[2021-05-07 09:58] LABS: CALCIUM 8.6 mg/dL (8.5-10.1); LIPASE 155 U/L (73-393)
[2021-05-07 09:59] LABS: ANION GAP 9 MMOL/L (8-16); CO2 22 mmol/L (21-32); GLUCOSE,RANDOM 100 mg/dL (74-106)
[2021-05-07 10:01] LABS: SGOT/AST 84 U/L (15-37); SGPT/ALT 74 U/L (13-61)
[2021-05-07 10:02] LABS: CREATININE 0.6 mg/dL (0.55-1.3)
[2021-05-07 10:03] LABS: BILIRUBIN,TOTAL 0.6 mg/dL (0.2-1); TOT PROT 7.9 g/dl (6.4-8.2)
[2021-05-07 10:04] LABS: ALK PHOS 81 U/L (45-117)
[2021-05-07 10:23] LABS: EPI CELLS 9 /uL (0-25.1); HYALINE CASTS 0 /uL (0-3.1); URINE APPEARANCE CLEAR; URINE BACTERIA 29 /uL (0-1359); URINE BILIRUBIN NEGATIVE (NEGATIVE); URINE COLOR YELLOW; URINE GLUCOSE (UA) TRACE (NEGATIVE); URINE KETONE TRACE (NEGATIVE); URINE LEUK ESTERASE NEGATIVE (NEGATIVE); URINE NITRITE NEGATIVE (NEGATIVE); URINE PROTEIN NEGATIVE (NEGATIVE); URINE RBC 83 /uL (0-23.9); URINE UROBILINOGEN 0.2 mg/dL (0.2-1.0); URINE WBC 4 /uL (0-25.8)
[2021-05-07 11:31] VITALS: BP 98/68; TEMP 98.5
[2021-05-07 13:15] VITALS: PULSE 76
== END 2021-05-07 12:46 | disposition home or self-care (01) ==
LOC: JER 08:33
PROC: 3E033NZ Introduction of Analgesics, Hypnotics, Sedatives into Peripheral Vein, Percutaneous Approach (ICD-10-PCS; principal; 2021-05-07)
PROC: 3E033GC Introduction of Other Therapeutic Substance into Peripheral Vein, Percutaneous Approach (ICD-10-PCS; 2021-05-07)
PROC: 3E033GC Introduction of Other Therapeutic Substance into Peripheral Vein, Percutaneous Approach (ICD-10-PCS; 2021-05-07)
DX: B34.9 Viral infection, unspecified (principal); M79.10 Myalgia, unspecified site; R10.84 Generalized abdominal pain
CPT/HCPCS: 36415; 71045-TC-FY; 80053; 81003; 83605; 83690; 84484; 84703; 85025; 87086; 93005; 93010; 99284-25; C9803; J0131; U0003; U0005

== ENCOUNTER 2023-09-21 04:07 | Emergency (ER) | payer OTHER ==
[2023-09-21 04:13] VITALS: RESP 18; BMI 24.4
[2023-09-21] MEDS ORDERED: KETOROLAC TROMETHAMINE 30 MG/1 ML VIAL IM ONE (04:55)
[2023-09-21] MEDS ORDERED: DEXAMETHASONE SOD PHOSPHATE 10 MG/1 ML VIAL IM ONE (04:55)
[2023-09-21] MEDS ORDERED: DEXAMETHASONE SOD PHOSPHATE 10 MG/1 ML VIAL ONE (04:59)
[2023-09-21 07:08] VITALS: BP 106/44; PULSE 71; TEMP 98
== END 2023-09-21 07:30 | disposition home or self-care (01) ==
LOC: JER 04:07
PROC: 3E0233Z Introduction of Anti-inflammatory into Muscle, Percutaneous Approach (ICD-10-PCS; principal; 2023-09-21)
PROC: 3E023GC Introduction of Other Therapeutic Substance into Muscle, Percutaneous Approach (ICD-10-PCS; 2023-09-21)
DX: J02.9 Acute pharyngitis, unspecified (principal); M54.2 Cervicalgia
CPT/HCPCS: 87651; 99284-25; J1100